=== PATIENT | female | born 1975 | race American Indian/Alaskan Native ===

== ENCOUNTER 2016-12-24 22:56 | Emergency (ER) | payer OTHER ==
[2016-12-24 23:13] VITALS: BP 134/85; PULSE 77; RESP 18; TEMP 98; O2SAT 99
--- NOTE | 2016-12-25 00:31 | C.PDOC ---
History Of Present Illness 41 y/o female presents to ED with complaint of left shoulder pain that started at 9:30 PM while at work. 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 Pain aggravated by movement. Patient is right hand dominant. Denies changes in sensation, trauma, or other associated symptoms. Time Seen by Provider: 12/24/16 23:35 Chief Complaint (Nursing): Upper Extremity Problem/Injury History Per: Patient History/Exam Limitations: no limitations Onset/Duration Of Symptoms: Hrs Current Symptoms Are (Timing): Still Present Past Medical History Reviewed: Historical Data, Nursing Documentation, Vital Signs Vital Signs: Last Vital Signs Temp 98.0 F 12/24/16 23:10 Pulse 77 12/24/16 23:10 Resp 18 12/24/16 23:10 BP 134/85 12/24/16 23:10 Pulse Ox 99 12/25/16 02:05 - Medical History PMH: No Chronic Diseases Family History: States: Unknown Family Hx - Social History Hx Alcohol Use: Yes Hx Substance Use: No - Immunization History Hx Tetanus Toxoid Vaccination: Yes Hx Influenza Vaccination: No Hx Pneumococcal Vaccination: No Review Of Systems Except As Marked, All Systems Reviewed And Found Negative. Constitutional: Negative for: Fever, Chills Respiratory: Negative for: Cough, Shortness of Breath Gastrointestinal: Negative for: Nausea, Vomiting Musculoskeletal: Positive for: Shoulder Pain Skin: Negative for: Rash Neurological: Negative for: Weakness, Numbness Physical Exam - Physical Exam Appears: Non-toxic, No Acute Distress Skin: Normal Color, Warm, Dry Head: Atraumatic, Normacephalic Eye(s): bilateral: Normal Inspection, EOMI Nose: Normal Oral Mucosa: Moist Chest: Symmetrical, No Tenderness Cardiovascular: Rhythm Regular Respiratory: Normal Breath Sounds, No Rales, No Rhonchi, No Wheezing Gastrointestinal/Abdominal: Soft, No Tenderness Back: Normal Inspection, No Vertebral Tenderness Extremity: Normal ROM (full ROM of left shoulder, pain aggravated past 90 degrees), Tenderness (left sub scapular), Capillary Refill (< 2 sec. ), No Deformity Extremity: Bilateral: Normal Color And Temperature Pulses: Left Radial: Normal, Right Radial: Normal Neurological/Psych: Oriented x3, Normal Motor (5/5 against resistance), Normal Sensation ED Course And Treatment O2 Sat by Pulse Oximetry: 99 (RA) Pulse Ox Interpretation: Normal - Other Rad Left Shoulder X-Ray X-Ray: Interpreted by Me, Viewed By Me Interpretation: negative for acute fx or dislocation Progress Note: Treated with Motrin. Left x-rays ordered and reviewed; negative for acute fx or dislocation. Shoulder sling applied. On reassessment, patient is resting comfortably, and is in no acute distress. Patient instructed to follow up with clinic/PMD within 1-2 days. Disposition - Disposition Referrals: Parth Dhillon III, MD [Staff Provider] - Disposition: HOME/ ROUTINE Disposition Time: 00:29 Condition: STABLE Additional Instructions: Follow up with your primary medical doctor or clinic in 2-5 days for further evaluation. Take medications as prescribed. Return to the emergency department at any time if symptoms persist or worsen. Prescriptions: Cyclobenzaprine [Cyclobenzaprine HCl] 10 mg PO TID #20 tab Naproxen [Naprosyn] 1 tab PO BID PRN #20 tab PRN Reason: Pain Instructions: Shoulder Pain (ED) Forms: Work Excuse - Clinical Impression Clinical Impression: Left shoulder strain - PA / [employer] / Resident Statement MD/DO has reviewed & agrees with the documentation as recorded. - Scribe Statement The provider has reviewed the documentation as recorded by the Cesario Lozano Provider Scribe Attestation: All medical record entries made by the Cesario were at my direction and personally dictated by me. I have reviewed the chart and agree that the record accurately reflects my personal performance of the history, physical exam, medical decision making, and the department course for this patient. I have also personally directed, reviewed, and agree with the discharge instructions and disposition.
--- NOTE | 2016-12-25 09:07 | RAD ---
PROCEDURE: Radiographs of the Left Shoulder HISTORY: pain COMPARISON: No prior. FINDINGS: BONES: Normal. No fracture. JOINTS: Normal. Glenohumeral and acromioclavicular joints preserved. No osteoarthritis. SOFT TISSUES: Normal. OTHER FINDINGS: Nonspecific sclerotic density in the humeral head. . IMPRESSION: No evidence of fracture dislocation. Nonspecific sclerotic density in the right mid. Follow-up can be obtained as per clinical indications.
== END 2016-12-25 00:45 | disposition home or self-care (01) ==
LOC: C.ER 22:56
DX: S46.912A Strain of unspecified muscle, fascia and tendon at shoulder and upper arm level, left arm, initial encounter (principal); X50.9XXA Other and unspecified overexertion or strenuous movements or postures, initial encounter; Y93.89 Activity, other specified; Y92.815 Train as the place of occurrence of the external cause; Y99.0 Civilian activity done for income or pay

== ENCOUNTER 2018-08-19 20:49 | Emergency (ER) | payer OTHER ==
[2018-08-19] MEDS ORDERED: Sodium Chloride 0.9% 1,000 ML IV ONE (21:16)
[2018-08-19] MEDS ORDERED: Iohexol 240 (50 ml) PO ONE (21:34)
[2018-08-19 21:40] LABS: BASO % 0.1 % (0.0-2.0); EOS # 0.3 K/uL (0.0-0.7); EOS % 2.6 % (0.0-4.0); HEMOGLOBIN 12.1 g/dL (11.0-16.0); LYMPH # 2.4 K/uL (1.0-4.3); LYMPH % 19.6 % (20.0-40.0); MEAN CELL VOLUME 77.7 fL (81.0-99.0); MEAN CORPUSCULAR HEMOGLOBIN 25.4 pg (27.0-31.0); MEAN CORPUSCULAR HGB CONC 32.7 g/dL (33.0-37.0); MEAN PLATELET VOLUME 7.9 fL (7.2-11.7); MONO # 0.5 K/uL (0.0-0.8); MONO % 4.2 % (0.0-10.0); NEUT % 73.5 % (50.0-75.0); RBC 4.75 Mil/uL (3.80-5.20); RED CELL DISTRIBUTION WIDTH 14.3 % (11.5-14.5); WHITE BLOOD COUNT 12.2 K/uL (4.8-10.8)
[2018-08-19] MEDS ORDERED: Sodium Chloride 0.9% 1,000 ML ONE (21:41)
[2018-08-19 21:44] LABS: HCG,QUALITATIVE URINE NEGATIVE (NEGATIVE)
[2018-08-19 21:45] LABS: SQUAMOUS EPITHIAL 13 /hpf (0-5); URINE BACTERIA FEW (<OCC); URINE BILIRUBIN NEGATIVE (NEGATIVE); URINE BLOOD NEGATIVE (NEGATIVE); URINE CLARITY Hazy (Clear); URINE COLOR Yellow (YELLOW); URINE GLUCOSE (UA) NORMAL (Normal); URINE LEUKOCYTE ESTERASE 1+ Leu/uL (Negative); URINE PROTEIN 1+ mg/dL (NEGATIVE)
[2018-08-19 21:52] LABS: ALB/GLOB RATIO 1.2 (1.0-2.1); ALBUMIN 4.1 g/dL (3.5-5.0); ALT/SGPT 23 U/L (9-52); AST/SGOT 19 U/L (14-36); BLOOD UREA NITROGEN 11 mg/dL (7-17); CALCIUM 9.2 mg/dl (8.6-10.4); GFR NON-AFRICAN AMERICAN > 60; LIPASE 73 U/L (23-300)
--- NOTE | 2018-08-19 21:56 | C.PDOC ---
History Of Present Illness 42 year old female presents to the ED c/o lower abdominal pain associated with nausea and vomit that started 2 hours ago. Patient denies fever, chills, diarrhea, dysuria, hematuria, back pain, rash. Chief Complaint (Nursing): Abdominal Pain History Per: Patient History/Exam Limitations: no limitations Onset/Duration Of Symptoms: Hrs (2) Current Symptoms Are (Timing): Still Present Location Of Pain/Discomfort: RLQ, LLQ Radiation Of Pain To:: None Quality Of Discomfort: "Pain" Associated Symptoms: Nausea, Vomiting. denies: Diarrhea, Urinary Symptoms Recent travel outside of the [place]: No Additional History Per: Patient Abnormal Vaginal Bleeding: No Past Medical History Reviewed: Historical Data, Nursing Documentation, Vital Signs Vital Signs: Last Vital Signs Temp 97.7 F 08/19/18 20:55 Pulse 68 08/19/18 20:55 Resp 16 08/19/18 20:55 BP 120/77 08/19/18 20:55 Pulse Ox 100 08/19/18 20:55 - Medical History PMH: No Chronic Diseases Surgical History: No Surg Hx Family History: States: Unknown Family Hx - Social History Hx Alcohol Use: Yes Hx Substance Use: No - Immunization History Hx Tetanus Toxoid Vaccination: Yes Hx Influenza Vaccination: No Hx Pneumococcal Vaccination: No Review Of Systems Constitutional: Negative for: Fever, Chills Cardiovascular: Negative for: Chest Pain Respiratory: Negative for: Shortness of Breath Gastrointestinal: Positive for: Nausea, Vomiting, Abdominal Pain. Negative for: Diarrhea Musculoskeletal: Negative for: Back Pain Skin: Negative for: Rash Physical Exam - Physical Exam Appears: Non-toxic, In Acute Distress Skin: Normal Color, Warm, Dry Head: Atraumatic, Normacephalic Eye(s): bilateral: Normal Inspection Oral Mucosa: Moist Neck: Normal ROM, Supple Chest: Symmetrical Cardiovascular: Rhythm Regular Respiratory: Normal Breath Sounds, No Rales, No Rhonchi, No Wheezing Gastrointestinal/Abdominal: Soft, Tenderness (bilateral lower quadrants, right more than left), No Guarding, No Rebound, Other (obese) Back: No CVA Tenderness Extremity: Normal ROM, No Tenderness, No Swelling Neurological/Psych: Oriented x3, Normal Speech, Normal Cognition Gait: Steady ED Course And Treatment - Laboratory Results Result Diagrams: 08/19/18 21:36 08/19/18 21:36 O2 Sat by Pulse Oximetry: 100 (ON RA) Pulse Ox Interpretation: Normal - CT Scan/US CT abd/pelvis Other Rad Studies (CT/US): Read By Radiologist, Radiology Report Reviewed CT/US Interpretation: CT SCAN OF THE ABDOMEN AND PELVIS WITH CONTRAST. CLINICAL HISTORY: Abdominal pain. TECHNIQUE: Multiple axial and coronal CT images were obtained through the abdomen and pelvis after administration of intravenous contrast material. COMMENTS: The liver is of uniform attenuation without mass or defect. There is no intra or extrahepatic biliary ductal dilatation. The spleen is normal. The gallbladder is within normal limits. The pancreas is of normal contour and attenuation characteristics. There is no evidence of adrenal mass. Both kidneys demonstrate prompt and equal nephrograms. The kidneys are no rmal in size, shape and configuration. There is no evidence of renal or ureteral mass. No renal or ureteral calculi are identified. There is no hydroureter or hydronephrosis. No evidence for appendicitis. There is no bowel wall thickening. No evidence for small or large bowel obstruction. There is no evidence of abdominal ascites or lymphadenopathy. There is no evidence of intrinsic or extrinsic bladder mass. There is no pelvic ascites or lymphadenopathy. Moderate amount of fecal residue in the large bowels. Uncomplicated colonic diverticulosis. 4.5 cm calcified uterine fibroid. Images of the lung bases show no evidence of pleural or parenchymal mass. There are no pleural effusions. The bony structures are free of lytic or blastic lesions. IMPRESSION: Moderate constipation. No evidence of acute abdominal or pelvic pathology. Thank you for your kind referral of this patient. . Electronically signed on Aug 20, 2018 1:50:20 AM EST by: Migue Nuno M.D., Certified by ABR, MSK, Neuroradiology Medical Decision Making Medical Decision Making: Plan: * CT abd/pelvis * Labs * Morphine 2 mg IVP * IV fluids * Zofran 4 mg IVP * UA Disposition Counseled Patient/Family Regarding: Diagnosis - Disposition Referrals: [facility] [Outside] Disposition: HOME/ ROUTINE Disposition Time: 01:53 Condition: STABLE Prescriptions: Ciprofloxacin [Cipro] 1 tab PO BID #14 tab Ibuprofen [Motrin] 1 tab PO TID PRN #30 tab PRN Reason: Pain Instructions: Urinary Tract Infections in Adults, Uterine Fibroids, Acute Abdomen (Belly Pain) Forms: [employer] (Erit[place]an) - POA Present On Arrival: None - Clinical Impression Clinical Impression: Abdominal pain, UTI (urinary tract infection), Uterine fibroid - Scribe Statement The provider has reviewed the documentation as recorded by the Scribe Theo Lozano All medical record entries made by the Yolandaibe were at my direction and personally dictated by me. I have reviewed the chart and agree that the record accurately reflects my personal performance of the history, physical exam, medical decision making, and the department course for this patient. I have also personally directed, reviewed, and agree with the discharge instructions and disposition.
[2018-08-19] MEDS ORDERED: Iohexol 240 (50 ml) ONE (22:14)
[2018-08-19] MEDS ORDERED: Iodixanol 320 MG/ML 100 ML BOTTLE IV ONE (22:19)
[2018-08-20] MEDS ORDERED: Ciprofloxacin 400mg/200ml D5W 400 MG/200 ML BAG IVPB STA (01:34)
[2018-08-20] MEDS ORDERED: Ciprofloxacin 400mg/200ml D5W 400 MG/200 ML BAG IVPB ONE (01:40)
[2018-08-20 01:52] VITALS: O2SAT 100
[2018-08-20 03:21] VITALS: BP 129/86; PULSE 78; RESP 14; TEMP 98.5
--- NOTE | 2018-08-20 08:35 | CT ---
Date of service: 08/20/2018 PROCEDURE: CT Abdomen and Pelvis with contrast HISTORY: Lower abdominal pain COMPARISON: None. TECHNIQUE: Multiple contiguous axial images were performed through the abdomen and pelvis with the use of intravenous contrast. Subsequently, sagittal and coronal reformatted images were obtained. Radiation dose: Total exam DLP = 890.02 mGy-cm. This CT exam was performed using one or more of the following dose reduction techniques: Automated exposure control, adjustment of the mA and/or kV according to patient size, and/or use of iterative reconstruction technique. FINDINGS: LOWER THORAX: Unremarkable. LIVER: Unremarkable. No gross lesion or ductal dilatation. GALLBLADDER AND BILE DUCTS: Unremarkable. PANCREAS: Unremarkable. No gross lesion or ductal dilatation. SPLEEN: Unremarkable. Splenule. ADRENALS: Unremarkable. No mass. KIDNEYS AND URETERS: Unremarkable. No hydronephrosis. No solid mass. VASCULATURE: Unremarkable. No aortic aneurysm. No aortic atherosclerotic calcification or mural plaque present. BOWEL: Unremarkable. No obstruction. No gross mural thickening. Moderate constipation. APPENDIX: Normal appendix. PERITONEUM: Unremarkable. No free fluid. No free air. LYMPH NODES: Unremarkable. No enlarged lymph nodes. BLADDER: Unremarkable. REPRODUCTIVE: Prominent multi fibroid uterus with a large calcified fibroid lesion noted measuring up to 3.3 centimeters. Prominence of the bilateral adnexa with a suggestion of a 1.7 centimeter right adnexal cyst. BONES: Degenerative changes in the spine. OTHER FINDINGS: Calcified phleboliths in the pelvis. Some reticulation and fluid seen within the posterior subcutaneous soft tissues. IMPRESSION: Prominent multi fibroid uterus with a large calcified fibroid lesion noted measuring up to 3.3 centimeters. Prominence of the bilateral adnexa with a suggestion of a 1.7 centimeter right adnexal cyst. Moderate constipation. Additional findings as above. A preliminary report was generated at 1:50 a.m. on 08/20/[address] Migue Nuno from [employer]
== END 2018-08-20 03:37 | disposition home or self-care (01) ==
LOC: C.ER 20:49
DX: N39.0 Urinary tract infection, site not specified (principal); D25.9 Leiomyoma of uterus, unspecified; R10.9 Unspecified abdominal pain
CPT/HCPCS: 74177; 80053; 81001; 83690; 84703; 85025; 87086; 96365; 96375; 99285; J0744; J2270; J2405; J7030; Q9966; Q9967